=== PATIENT | female | born 1960 | race African-American/Black ===

== ENCOUNTER 2016-11-06 11:10 | Emergency (ER) | payer MEDICAID, OTHER ==
[~2016-11-06] VITALS: Ht 162.6 cm; Wt 64.0 kg
[~2016-11-06 11:10] MED LIST: OLAN10TA6 PO; OMEP20 PO
[2016-11-06] MEDS ORDERED: HYDR25TA PO (11:17)
[2016-11-06] MEDS ORDERED: BENA5TAB26 PO (11:17)
[2016-11-06 12:24] VITALS: BP 129/72
== END 2016-11-06 12:58 | disposition home or self-care (01) ==
LOC: EMS 11:11
DX: I95.9 Hypotension, unspecified (principal); I10 Essential (primary) hypertension; F41.9 Anxiety disorder, unspecified; K21.9 Gastro-esophageal reflux disease without esophagitis; F17.210 Nicotine dependence, cigarettes, uncomplicated
CPT/HCPCS: 99281